=== PATIENT | female | born 2000 | race Caucasian/White ===

== ENCOUNTER 2021-03-18 10:04 | Outpatient (CLI) | payer OTHER | END 2021-03-18 10:05 | disposition home or self-care (01) | LOC: BICRAD 10:04 | DX: R07.81 Pleurodynia (principal) | CPT/HCPCS: 71046 ==

== ENCOUNTER 2022-06-03 07:54 | Emergency (ER) | payer MEDICAID, SELFPAY ==
[2022-06-03] MEDS ORDERED: Bicillin LA 2.4 MILL.UNITS/4 ML SYRINGE ONE (08:14)
== END 2022-06-03 08:25 | disposition home or self-care (01) ==
LOC: ERS 07:54
DX: J02.9 Acute pharyngitis, unspecified (principal)
CPT/HCPCS: 96372; 99283; J0561

== ENCOUNTER 2023-10-05 10:01 | Outpatient (CLI) | payer OTHER | END 2023-10-05 10:02 | disposition home or self-care (01) | LOC: BICULT 10:01 | PROVIDERS: ATTEND Family Medicine | DX: Z34.02 Encounter for supervision of normal first pregnancy, second trimester (principal); Z3A.22 22 weeks gestation of pregnancy | CPT/HCPCS: 76805 ==